=== PATIENT | female | born 1990 | race Caucasian/White ===

== ENCOUNTER 2016-06-02 11:03 | Emergency (ER) | payer MEDICAID ==
[2016-06-02 11:15] VITALS: BP 129/70; PULSE 79; RESP 16; TEMP 98.4; O2SAT 99
--- NOTE | 2016-06-02 11:57 | UCPHY ---
H & P Time Seen by Provider: 06/02/16 11:44 Patient Type: New HPI/ROS: This patient presents with a 1 day history of pain in the right submental region of her neck. She remembers no trauma and she has no associated symptoms and denies sore throat, runny nose, fever, painful swallowing or ear pain. Yesterday she had a temperature of 99.1degrees degrees. Smoking Status: Never smoked Physical Exam: This patient is alert, lucid, has a normal gait and normal speech. Examination of the mouth and pharynx as well as the ears are all normal. Examination of the submental region reveals some tenderness but no obvious swelling and no masses. The skin overlying this area is entirely normal. Constitutional: Initial Vital Signs Temperature (C) 36.9 C 06/02/16 11:10 Heart Rate 79 06/02/16 11:10 Respiratory Rate 16 06/02/16 11:10 Blood Pressure 129/70 H 06/02/16 11:10 O2 Sat (%) 99 06/02/16 11:10 O2 Delivery Mode Room Air Allergies/Adverse Reactions: cefaclor [From Ceclor] Allergy (Unknown, Verified 06/02/16 11:15) Unknown Penicillins Allergy (Unknown, Verified 06/02/16 11:15) Unknown Home Medications: Medication Instructions Recorded NK [No Known Home Meds] 06/02/16 Departure - Departure Disposition: Home, Routine, Self-Care Clinical Impression: Neck pain on right side Condition: Good Instructions: Acute Neck Pain (ED) Additional Instructions: If the since symptoms have not resolved in for 5 days you should be re- evaluated. If things change and you develop a fever greater than 101 degrees or obvious swelling you should be re-evaluated immediately. Apply heat to the area several times daily. Adult Pain & Fever Control: We recommend Acetaminophen (Tylenol) and Ibuprofen (Motrin, Advil) for pain and fever control. When fever is high or pain severe, both drugs can be used at the same time, but at different intervals. Please note the time differences. Your dose is: Acetaminophen [650]mg every 4 to 6 hours ibuprofen [600]mg every [6] hours with food OR naproxen Sodium (Aleve) [440]mg every 12 hours. Note: do not take Acetaminophen with Hydrocodone (Vicodin, Lortab) or Oxycodone (Percocet). These medications also contain Acetaminophen. No more than 3000 mg of Acetaminophen should be taken in 24 hours (for an adult) . The maximal dose of ibuprofen that it is safe in a 24-hour period is 2400 mg. You may take 400 mg every 4 hours, 600 mg every 6 hours or 800 mg every 8 hours safely. Referrals: NONE *PRIMARY CARE P,. [Primary Care Provider] - As per Instructions - PQRS PQRS Measurement: Not applicable
== END 2016-06-02 12:06 | disposition home or self-care (01) ==
LOC: CED 11:03
DX: M54.2 Cervicalgia (principal)
CPT/HCPCS: 99203-PO; G0463-PO

== ENCOUNTER 2016-06-04 07:46 | Emergency (ER) | payer MEDICAID ==
[2016-06-04 07:57] VITALS: BP 128/81; PULSE 88; RESP 16; TEMP 99.1; O2SAT 97
--- NOTE | 2016-06-04 07:59 | UCPHY ---
H & P Time Seen by Provider: 06/04/16 07:56 Patient Type: Established HPI/ROS: 25-year-old female presents complaining of sore throat painful swallowing and right submandibular swelling. She was seen for the right submandibular swelling 2 days ago and at that time had no other symptoms. No fevers no chills no cold symptoms no cough. Review of systems As per HPI General no fever no chills no weakness HEENT no eye pain no eye discharge. No eye redness, positive sore throat Respiratory no cough, no shortness of breath Cardiac no chest pain, no peripheral edema GI no abdominal pain, no diarrhea, no constipation, no nausea, no vomiting no flank pain, no hematuria, no dysuria Musculoskeletal no myalgias, no joint pain Heme no easy bruising, no easy bleeding Endo no polyuria, no polydipsia Skin no rashes, no pruritus Neuro no syncope, no dizziness, no headaches Psych is no suicidal ideation, no homicidal ideation Past Medical/Surgical History: Noncontributory Social History: Denies alcohol or drug use Smoking Status: Never smoked Physical Exam: 25-year-old female Alert and oriented in no acute distress nontoxic appearance, afebrile Atraumatic normocephalic Extraocular muscles intact, anicteric Neck-supple, right submandibular small lymph node tender to palpation no other obvious lymphadenopathy Oropharynx positive enlarged tonsils, erythematous, no uvular deviation, no purulent exudate, tolerating own secretions, no trismus Lungs clear to auscultation bilaterally Heart regular rate and rhythm Abdomen normoactive bowel sounds soft nontender Extremities no cyanosis clubbing edema Skin no rash Constitutional: Initial Vital Signs Temperature (C) 37.3 C 06/04/16 07:54 Heart Rate 88 06/04/16 07:54 Respiratory Rate 16 06/04/16 07:54 Blood Pressure 128/81 H 06/04/16 07:54 O2 Sat (%) 97 06/04/16 07:54 O2 Delivery Mode Room Air Allergies/Adverse Reactions: cefaclor [From Ceclor] Allergy (Unknown, Verified 06/04/16 07:57) Unknown Penicillins Allergy (Unknown, Verified 06/04/16 07:57) Unknown Home Medications: Medication Instructions Recorded Clindamycin HCl [Clindamycin] 300 mg PO TID #30 cap 06/04/16 Medical Decision Making ED Course/Re-evaluation: Patient seen and evaluated for sore throat, right submandibular tenderness. Rapid strep negative Physical exam significant for mild erythema of posterior pharynx as well as right submandibular swelling and tenderness to palpation Differential diagnosis Pharyngitis-viral or bacterial, odontogenic infection, sialolithiasis, sialoadenitis Impression/Plan Likely submandibular gland obstruction, cannot rule out additional infection Current recommendation Warm compresses, ibuprofen, sour hard candy Clindamycin three times daily times 10 days Return for worsening swelling fevers chills or difficulty swallowing. - Data Points Laboratory Results: 06/04/16 06/04/16 Unknown 08:15 Group A Strep Screen NEGATIVE (NEGATIVE) Group A Strep DNA Pending Departure - Departure Disposition: Home, Routine, Self-Care Clinical Impression: Sialadenitis, Pharyngitis Condition: Good Instructions: Pharyngitis (ED), Parotid Duct Obstruction (ED), Sialoadenitis ( ED) Referrals: NONE *PRIMARY CARE P,. [Primary Care Provider] - As per Instructions Prescriptions: Clindamycin HCl [Clindamycin] 300 mg PO TID #30 cap - PQRS PQRS Measurement: na
== END 2016-06-04 08:50 | disposition home or self-care (01) ==
LOC: CED 07:46
DX: K11.20 Sialoadenitis, unspecified (principal); J02.9 Acute pharyngitis, unspecified
CPT/HCPCS: 87880-PO; 99214-PO; G0463-PO